=== PATIENT | female | born 1930 | race Hispanic/Latino ===

== ENCOUNTER 2018-01-10 15:53 | Inpatient (IN) | payer OTHER ==
[~2018-01-10] VITALS: Ht 147.3 cm; Wt 69.5 kg
[~2018-01-10 15:53] MED LIST: ASPI-1146 PO; CHOL50004 PO; CLOP75TA32 PO; DOCU-272 PO; IBUP-2353 PO; LORA0.5T2 PO; LOSA100T29 PO; PRAV10TA39 PO
[2018-01-10 16:28] LABS: BASOPHILS % (AUTO) 0.4 % (0.0-5.0); EOSINOPHILS % (AUTO) 0.2 % (0.0-8.0); HEMATOCRIT 35.4 % (36-48); LYMPHOCYTES % (AUTO) 12.6 % (21.0-51.0); MEAN CORPUSCULAR HEMOGLOBIN 31.9 pg (27.0-33.0); MEAN CORPUSCULAR HGB CONC 34.9 g/dL (32.0-36.0); MEAN CORPUSCULAR VOLUME 91.5 fL (79-99); MONOCYTES % (AUTO) 9.3 % (3.0-13.0); NEUTROPHILS % (AUTO) 77.5 % (40.0-77.0); PLATELET COUNT (AUTO) 193 K/uL (130-400); RED BLOOD CELL COUNT(AUTO) 3.87 MIL/uL (4.00-5.50); RED CELL DISTRIBUTION WIDTH 13.3 % (11.0-15.5); WHITE BLOOD COUNT (AUTO) 7.9 K/uL (4.8-10.8)
[2018-01-10] MEDS ORDERED: ACETAMINOPHEN 325 MG TAB ONE (16:29)
[2018-01-10 16:32] LABS: INR 0.98 (0.85-1.15); PARTIAL THROMBOPLASTIN TIME 27.4 SEC (26.3-35.5); PROTHROMBIN TIME 10.3 SEC (9.6-11.6)
[2018-01-10 16:36] LABS: CREATININE 1.2 mg/dL (0.5-1.5); POTASSIUM 4.3 mmol/L (3.5-5.1)
[2018-01-10 16:41] LABS: ALBUMIN 3.5 g/dL (3.5-5.0); BILIRUBIN,TOTAL 0.4 mg/dL (0.2-1.0); TOTAL PROTEIN, SERUM 6.9 g/dL (6.0-8.3)
[2018-01-10 16:58] LABS: APPEARANCE,URINE Clear (CLEAR); BILIRUBIN,URINE Negative (NEGATIVE); COLOR,URINE Yellow (YELLOW); GLUCOSE, URINE (UA) Negative (NEGATIVE); KETONES,URINE Negative (NEGATIVE); LEUKOCYTE ESTERASE ,URINE Negative (NEGATIVE); NITRATE,URINE Negative (NEGATIVE); OCCULT BLOOD,URINE Negative (NEGATIVE); PROTEIN,URINE Trace (NEGATIVE)
[2018-01-10 17:22] LABS: BACTERIA,URINE Rare /HPF (None Seen); RBC,URINE None Seen /HPF (0-1); SQUAMOUS EPITHELIAL CELL,UR None Seen /LPF (0-2); WBC,URINE 0-1 /HPF (0-1)
[2018-01-10 17:22] LABS: RAPID GROUP A STREP NEGATIVE (NEGATIVE)
[2018-01-10] MEDS ORDERED: OSELTAMIVIR PHOSPHATE 75 MG CAP ONE (17:55)
[2018-01-10] MEDS ORDERED: SODIUM CHLORIDE 0.9% 1000ML 1,000 ML IV ONE (21:55)
[2018-01-10] MEDS ORDERED: BENZONATATE 100 MG CAPSULE PO ONE (21:56)
[2018-01-10] MEDS ORDERED: AZITHROMYCIN 250 MG TABLET PO ONE ×2 (21:57→22:31)
[2018-01-10 23:16] VITALS: BP 132/54
[2018-01-11] MEDS ORDERED: ONDANSETRON HCL 4 MG/2 ML VIAL IVP PRN (00:15)
[2018-01-11] MEDS ORDERED: PHARMACY COMMUNICATION MISC SCH ×2 (00:15→02:30)
[2018-01-11] MEDS: SODIUM CHLORIDE 0.9% 1000ML 1,000 ML IV SCH ×3 (00:45→22:07)
[2018-01-11] MEDS ORDERED: GLUCAGON 1MG KIT 1 MG ML IM PRN (00:45)
[2018-01-11] MEDS ORDERED: DEXTROSE 50%-WATER 50 ML DISP.SYRIN IV PRN (00:45)
[2018-01-11 04:00] VITALS: BP 145/62
[2018-01-11 04:26] LABS: HEMATOCRIT 29.4 % (36-48); MEAN CORPUSCULAR HEMOGLOBIN 33.4 pg (27.0-33.0); MEAN CORPUSCULAR HGB CONC 36.5 g/dL (32.0-36.0); MEAN CORPUSCULAR VOLUME 91.6 fL (79-99); PLATELET COUNT (AUTO) 153 K/uL (130-400); RED BLOOD CELL COUNT(AUTO) 3.21 MIL/uL (4.00-5.50); WHITE BLOOD COUNT (AUTO) 4.8 K/uL (4.8-10.8)
[2018-01-11 04:39] LABS: POTASSIUM 3.5 mmol/L (3.5-5.1)
[2018-01-11] MEDS: INSULIN HUMULIN R 100 UNIT/ML 3ML SQ SCH ×4 (06:29→21:00)
[2018-01-11] MEDS: IPRATROPIUM/ALBUTEROL SULFATE 3 ML SOLUTION IH SCH ×4 (06:53→23:52)
[2018-01-11 07:30] VITALS: BP 111/66
[2018-01-11] MEDS: AZITHROMYCIN 250 MG TABLET PO SCH (09:12)
[2018-01-11] MEDS: BENZONATATE 100 MG CAPSULE PO SCH ×3 (09:12→22:05)
[2018-01-11] MEDS: FAMOTIDINE 20MG TAB 20 MG TAB PO SCH ×2 (09:12→22:06)
[2018-01-11 11:00] VITALS: BP 153/67
[2018-01-11 16:00] VITALS: BP 143/60
[2018-01-11] MEDS: LORAZEPAM 0.5 MG TABLET PO PRN (17:08)
[2018-01-11] MEDS: ACETAMINOPHEN 325 MG TAB PO PRN (18:30)
[2018-01-11 19:00] VITALS: BP 129/47
[2018-01-11 23:00] VITALS: BP 123/48
[2018-01-12] MEDS: ACETAMINOPHEN 325 MG TAB PO PRN (01:33)
[2018-01-12 03:00] VITALS: BP 119/59
[2018-01-12 04:15] LABS: HEMATOCRIT 28.8 % (36-48); MEAN CORPUSCULAR HEMOGLOBIN 32.5 pg (27.0-33.0); MEAN CORPUSCULAR HGB CONC 36.1 g/dL (32.0-36.0); MEAN CORPUSCULAR VOLUME 90.1 fL (79-99); PLATELET COUNT (AUTO) 154 K/uL (130-400); RED CELL DISTRIBUTION WIDTH 12.9 % (11.0-15.5); WHITE BLOOD COUNT (AUTO) 3.6 K/uL (4.8-10.8)
[2018-01-12 04:20] LABS: CREATININE 0.9 mg/dL (0.5-1.5); POTASSIUM 3.1 mmol/L (3.5-5.1)
[2018-01-12 04:40] LABS: BAND NEUTROPHILS % (MANUAL) 8 % (0-2); LYMPHOCYTES % (MANUAL) 20 % (22-44); MAN.DIFF COMMENT-IMPRESSION MANUAL DIFFERENTIAL; MONOCYTES % (MANUAL) 6 % (2-9); PLATELET MORPHOLOGY COMMENT ADEQUATE; SEGMENTED NEUTROPHILS % 66 % (40-70)
[2018-01-12] MEDS: INSULIN HUMULIN R 100 UNIT/ML 3ML SQ SCH ×4 (05:59→22:25)
[2018-01-12] MEDS: IPRATROPIUM/ALBUTEROL SULFATE 3 ML SOLUTION IH SCH ×4 (06:38→23:49)
[2018-01-12 08:00] VITALS: BP 99/63
[2018-01-12] MEDS: BENZONATATE 100 MG CAPSULE PO SCH ×3 (08:48→22:10)
[2018-01-12] MEDS: FAMOTIDINE 20MG TAB 20 MG TAB PO SCH ×2 (08:48→22:10)
[2018-01-12] MEDS: AMLODIPINE BESYLATE 2.5 MG TAB PO SCH (08:49)
[2018-01-12] MEDS: METFORMIN HCL 500 MG TAB.SR.24H PO SCH (08:49)
[2018-01-12] MEDS: CLOPIDOGREL BISULFATE 75 MG TAB PO SCH (08:49)
[2018-01-12] MEDS: LOSARTAN 100 MG TABLET PO SCH (08:49)
[2018-01-12] MEDS: ASPIRIN 81 MG EC TAB PO SCH (08:49)
[2018-01-12] MEDS: AZITHROMYCIN 250 MG TABLET PO SCH (08:49)
[2018-01-12] MEDS: LORAZEPAM 0.5 MG TABLET PO PRN ×2 (08:52→22:10)
[2018-01-12] MEDS ORDERED: OSELTAMIVIR PHOSPHATE 75 MG CAP PO SCH (09:00)
[2018-01-12 11:51] VITALS: BP 149/70
[2018-01-12 16:20] VITALS: BP 134/66
[2018-01-12] MEDS ORDERED: MECLIZINE HCL 12.5 MG TABLET PO PRN (17:30)
[2018-01-12] MEDS: SODIUM CHLORIDE 0.9% 1000ML 1,000 ML IV SCH (17:39)
[2018-01-12] MEDS ORDERED: LATA2.5D2 OP (17:47)
[2018-01-12] MEDS ORDERED: CHOL100046 PO (17:47)
[2018-01-12] MEDS ORDERED: PRAV10TA39 PO (17:47)
[2018-01-12 19:28] VITALS: BP 128/61
[2018-01-12 23:35] VITALS: BP 158/72
[2018-01-13] MEDS ORDERED: [UNRECOGNIZED DRUG - OTHER] (00:25)
[2018-01-13] MEDS ORDERED: HALOPERIDOL LACTATE 5 MG/ML VIAL IV ONE (02:15)
[2018-01-13] MEDS ORDERED: HALOPERIDOL LACTATE 5 MG/ML VIAL ONE (02:19)
[2018-01-13] MEDS: SODIUM CHLORIDE 0.9% 1000ML 1,000 ML IV SCH ×2 (02:21→15:15)
[2018-01-13] MEDS ORDERED: [UNRECOGNIZED DRUG - OTHER] OU (03:06)
[2018-01-13 03:24] VITALS: BP 119/87
[2018-01-13] MEDS: IPRATROPIUM/ALBUTEROL SULFATE 3 ML SOLUTION IH SCH ×4 (06:00→23:45)
[2018-01-13 06:27] LABS: HEMATOCRIT 28.8 % (36-48); MEAN CORPUSCULAR HGB CONC 36.7 g/dL (32.0-36.0); MEAN CORPUSCULAR VOLUME 89.9 fL (79-99); PLATELET COUNT (AUTO) 169 K/uL (130-400); RED CELL DISTRIBUTION WIDTH 13.2 % (11.0-15.5); WHITE BLOOD COUNT (AUTO) 4.4 K/uL (4.8-10.8)
[2018-01-13 06:34] LABS: CREATININE 0.7 mg/dL (0.5-1.5); POTASSIUM 3.5 mmol/L (3.5-5.1)
[2018-01-13] MEDS: INSULIN HUMULIN R 100 UNIT/ML 3ML SQ SCH ×4 (07:30→21:00)
[2018-01-13] MEDS: METFORMIN HCL 500 MG TAB.SR.24H PO SCH (08:00)
[2018-01-13 08:45] LABS: BAND NEUTROPHILS % (MANUAL) 1 % (0-2); LYMPHOCYTES % (MANUAL) 20 % (22-44); MAN.DIFF COMMENT-IMPRESSION MANUAL DIFFERENTIAL; MONOCYTES % (MANUAL) 4 % (2-9); PLATELET MORPHOLOGY COMMENT ADEQUATE; SEGMENTED NEUTROPHILS % 75 % (40-70)
[2018-01-13] MEDS: BENZONATATE 100 MG CAPSULE PO SCH ×3 (09:00→22:32)
[2018-01-13] MEDS: FAMOTIDINE 20MG TAB 20 MG TAB PO SCH ×2 (09:00→22:31)
[2018-01-13 11:00] VITALS: BP 180/68
[2018-01-13] MEDS: AMLODIPINE BESYLATE 2.5 MG TAB PO SCH (12:37)
[2018-01-13] MEDS: AZITHROMYCIN 250 MG TABLET PO SCH (12:37)
[2018-01-13] MEDS: CLOPIDOGREL BISULFATE 75 MG TAB PO SCH (12:37)
[2018-01-13] MEDS: ASPIRIN 81 MG EC TAB PO SCH (12:38)
[2018-01-13] MEDS: LOSARTAN 100 MG TABLET PO SCH (12:38)
[2018-01-13] MEDS: ACETAMINOPHEN 325 MG TAB PO PRN (12:43)
[2018-01-13 16:00] VITALS: BP 186/78
[2018-01-13 20:00] VITALS: BP 147/85
[2018-01-13] MEDS ORDERED: RISPERIDONE 1 MG TABLET PO SCH (21:00)
[2018-01-14] VITALS: BP 160/74
[2018-01-14 04:00] VITALS: BP 147/65
[2018-01-14 04:59] LABS: HEMATOCRIT 29.9 % (36-48); MEAN CORPUSCULAR HEMOGLOBIN 31.8 pg (27.0-33.0); MEAN CORPUSCULAR HGB CONC 34.9 g/dL (32.0-36.0); MEAN CORPUSCULAR VOLUME 91.2 fL (79-99); PLATELET COUNT (AUTO) 190 K/uL (130-400); RED BLOOD CELL COUNT(AUTO) 3.28 MIL/uL (4.00-5.50); RED CELL DISTRIBUTION WIDTH 13.1 % (11.0-15.5)
[2018-01-14 05:02] LABS: CREATININE 0.7 mg/dL (0.5-1.5); POTASSIUM 3.4 mmol/L (3.5-5.1)
[2018-01-14 05:32] LABS: EOSINOPHILS % (MANUAL) 10 % (1-6); LYMPHOCYTES % (MANUAL) 40 % (22-44); MONOCYTES % (MANUAL) 4 % (2-9); SEGMENTED NEUTROPHILS % 46 % (40-70)
[2018-01-14 05:34] LABS: MAN.DIFF COMMENT-IMPRESSION MANUAL DIFFERENTIAL; PLATELET MORPHOLOGY COMMENT A1
[2018-01-14] MEDS: INSULIN HUMULIN R 100 UNIT/ML 3ML SQ SCH ×3 (06:14→21:00)
[2018-01-14] MEDS: SODIUM CHLORIDE 0.9% 1000ML 1,000 ML IV SCH ×2 (06:14→20:40)
[2018-01-14] MEDS: IPRATROPIUM/ALBUTEROL SULFATE 3 ML SOLUTION IH SCH ×3 (07:01→18:17)
[2018-01-14 08:14] VITALS: BP 172/66
[2018-01-14] MEDS ORDERED: RISPERIDONE 0.5 MG TABLET PO SCH (09:00)
[2018-01-14] MEDS: LOSARTAN 100 MG TABLET PO SCH (09:08)
[2018-01-14] MEDS: BENZONATATE 100 MG CAPSULE PO SCH ×3 (09:08→21:02)
[2018-01-14] MEDS: METFORMIN HCL 500 MG TAB.SR.24H PO SCH (09:08)
[2018-01-14] MEDS: ASPIRIN 81 MG EC TAB PO SCH (09:08)
[2018-01-14] MEDS: AZITHROMYCIN 250 MG TABLET PO SCH (09:09)
[2018-01-14] MEDS: AMLODIPINE BESYLATE 2.5 MG TAB PO SCH (09:09)
[2018-01-14] MEDS: CLOPIDOGREL BISULFATE 75 MG TAB PO SCH (09:09)
[2018-01-14] MEDS: FAMOTIDINE 20MG TAB 20 MG TAB PO SCH ×2 (09:09→20:39)
[2018-01-14 12:00] VITALS: BP 164/75
[2018-01-14 16:00] VITALS: BP 172/74
[2018-01-14] MEDS ORDERED: HYDRALAZINE HCL 20 MG/ML VIAL IV PRN (19:15)
[2018-01-14 20:00] VITALS: BP 185/76
[2018-01-14] MEDS: RISPERIDONE 1 MG TABLET PO SCH (20:39)
[2018-01-14] MEDS ORDERED: METRONIDAZOLE 500MG/100ML BAG 0 ML ONE (21:24)
[2018-01-15] VITALS (7 sets, daily range): BP systolic 151–177; BP diastolic 66–81
[2018-01-15] MEDS: IPRATROPIUM/ALBUTEROL SULFATE 3 ML SOLUTION IH SCH ×5 (00:24→19:37)
[2018-01-15] MEDS: SODIUM CHLORIDE 0.9% 1000ML 1,000 ML IV SCH ×2 (04:45→17:47)
[2018-01-15 06:29] LABS: HEMATOCRIT 32.8 % (36-48); MEAN CORPUSCULAR HEMOGLOBIN 33.2 pg (27.0-33.0); MEAN CORPUSCULAR HGB CONC 36.4 g/dL (32.0-36.0); MEAN CORPUSCULAR VOLUME 91.1 fL (79-99); NUCLEATED RED BLOOD CELLS 0.1 % (0.0-0.19); PLATELET COUNT (AUTO) 233 K/uL (130-400); RED CELL DISTRIBUTION WIDTH 12.9 % (11.0-15.5); WHITE BLOOD COUNT (AUTO) 4.8 K/uL (4.8-10.8)
[2018-01-15 06:54] LABS: CREATININE 0.8 mg/dL (0.5-1.5); POTASSIUM 3.5 mmol/L (3.5-5.1)
[2018-01-15] MEDS: INSULIN HUMULIN R 100 UNIT/ML 3ML SQ SCH ×4 (07:30→21:00)
[2018-01-15 07:55] LABS: EOSINOPHILS % (MANUAL) 6 % (1-6); LYMPHOCYTES % (MANUAL) 14 % (22-44); MAN.DIFF COMMENT-IMPRESSION MANUAL DIFFERENTIAL; MONOCYTES % (MANUAL) 3 % (2-9); PLATELET MORPHOLOGY COMMENT ADEQUATE; REACTIVE LYMPHOCYTES 1 % (0-0); SEGMENTED NEUTROPHILS % 76 % (40-70)
[2018-01-15] MEDS ORDERED: POTASSIUM CHLORIDE 10% ELIXIR 20 MEQ/15 ML UDCUP PO PRN (08:45)
[2018-01-15] MEDS ORDERED: LIDOCAINE HCL-MPF 1% 2ML VIAL IVP PRN (08:45)
[2018-01-15] MEDS ORDERED: POTASSIUM CHLORIDE 20MEQ/100ML 100 ML IV PRN (08:45)
[2018-01-15] MEDS ORDERED: RISPERIDONE 0.5 MG TABLET PO SCH (09:00)
[2018-01-15] MEDS: AZITHROMYCIN 250 MG TABLET PO SCH (09:19)
[2018-01-15] MEDS: AMLODIPINE BESYLATE 2.5 MG TAB PO SCH (09:19)
[2018-01-15] MEDS: RISPERIDONE 1 MG TABLET PO SCH ×2 (09:19→21:12)
[2018-01-15] MEDS: CLOPIDOGREL BISULFATE 75 MG TAB PO SCH (09:19)
[2018-01-15] MEDS: METFORMIN HCL 500 MG TAB.SR.24H PO SCH (09:20)
[2018-01-15] MEDS: LOSARTAN 100 MG TABLET PO SCH (09:20)
[2018-01-15] MEDS: BENZONATATE 100 MG CAPSULE PO SCH ×3 (09:20→21:13)
[2018-01-15] MEDS: ASPIRIN 81 MG EC TAB PO SCH (09:20)
[2018-01-15] MEDS: FAMOTIDINE 20MG TAB 20 MG TAB PO SCH ×2 (09:20→21:13)
[2018-01-15] MEDS: POTASSIUM CHLORIDE 20 MEQ ERTAB PO PRN ×2 (11:59→13:54)
[2018-01-16] MEDS: IPRATROPIUM/ALBUTEROL SULFATE 3 ML SOLUTION IH SCH ×5 (00:07→23:16)
[2018-01-16] MEDS: SODIUM CHLORIDE 0.9% 1000ML 1,000 ML IV SCH ×2 (02:36→18:15)
[2018-01-16 04:00] VITALS: BP 134/56
[2018-01-16] MEDS: INSULIN HUMULIN R 100 UNIT/ML 3ML SQ SCH ×4 (06:21→20:53)
[2018-01-16 06:32] LABS: HEMATOCRIT 31.8 % (36-48); MEAN CORPUSCULAR HEMOGLOBIN 32.1 pg (27.0-33.0); MEAN CORPUSCULAR VOLUME 91.6 fL (79-99); PLATELET COUNT (AUTO) 269 K/uL (130-400); RED BLOOD CELL COUNT(AUTO) 3.47 MIL/uL (4.00-5.50); RED CELL DISTRIBUTION WIDTH 13.1 % (11.0-15.5); WHITE BLOOD COUNT (AUTO) 5.9 K/uL (4.8-10.8)
[2018-01-16 06:41] LABS: CREATININE 0.7 mg/dL (0.5-1.5); POTASSIUM 3.9 mmol/L (3.5-5.1)
[2018-01-16 08:11] VITALS: BP 159/76
[2018-01-16 08:57] LABS: EOSINOPHILS % (MANUAL) 1 % (1-6); LYMPHOCYTES % (MANUAL) 20 % (22-44); MAN.DIFF COMMENT-IMPRESSION MANUAL DIFFERENTIAL; MONOCYTES % (MANUAL) 10 % (2-9); PLATELET MORPHOLOGY COMMENT ADEQUATE; SEGMENTED NEUTROPHILS % 69 % (40-70)
[2018-01-16] MEDS: METFORMIN HCL 500 MG TAB.SR.24H PO SCH (08:59)
[2018-01-16] MEDS: AMLODIPINE BESYLATE 2.5 MG TAB PO SCH (08:59)
[2018-01-16] MEDS: ASPIRIN 81 MG EC TAB PO SCH (08:59)
[2018-01-16] MEDS: BENZONATATE 100 MG CAPSULE PO SCH ×3 (08:59→20:52)
[2018-01-16] MEDS: LOSARTAN 100 MG TABLET PO SCH (08:59)
[2018-01-16] MEDS: CLOPIDOGREL BISULFATE 75 MG TAB PO SCH (08:59)
[2018-01-16] MEDS: AZITHROMYCIN 250 MG TABLET PO SCH (09:00)
[2018-01-16] MEDS: FAMOTIDINE 20MG TAB 20 MG TAB PO SCH ×2 (09:00→20:53)
[2018-01-16] MEDS: RISPERIDONE 1 MG TABLET PO SCH ×2 (09:00→20:53)
[2018-01-16 12:05] VITALS: BP 137/65
[2018-01-16 17:18] VITALS: BP 146/61
[2018-01-16 20:00] VITALS: BP 149/69
[2018-01-16] MEDS: GABAPENTIN 100 MG CAPSULE PO SCH (20:52)
[2018-01-17] VITALS: BP 139/75
[2018-01-17 04:00] VITALS: BP 162/64
[2018-01-17 04:31] LABS: HEMATOCRIT 29.3 % (36-48); MEAN CORPUSCULAR HEMOGLOBIN 32.8 pg (27.0-33.0); MEAN CORPUSCULAR HGB CONC 35.9 g/dL (32.0-36.0); MEAN CORPUSCULAR VOLUME 91.4 fL (79-99); PLATELET COUNT (AUTO) 286 K/uL (130-400); RED BLOOD CELL COUNT(AUTO) 3.21 MIL/uL (4.00-5.50); RED CELL DISTRIBUTION WIDTH 13.2 % (11.0-15.5); WHITE BLOOD COUNT (AUTO) 7.2 K/uL (4.8-10.8)
[2018-01-17 04:35] LABS: CREATININE 0.8 mg/dL (0.5-1.5); POTASSIUM 3.5 mmol/L (3.5-5.1)
[2018-01-17 04:50] LABS: EOSINOPHILS % (MANUAL) 1 % (1-6); LYMPHOCYTES % (MANUAL) 24 % (22-44); MAN.DIFF COMMENT-IMPRESSION MANUAL DIFFERENTIAL; MONOCYTES % (MANUAL) 6 % (2-9); SEGMENTED NEUTROPHILS % 69 % (40-70)
[2018-01-17] MEDS: INSULIN HUMULIN R 100 UNIT/ML 3ML SQ SCH ×4 (06:02→20:54)
[2018-01-17] MEDS: IPRATROPIUM/ALBUTEROL SULFATE 3 ML SOLUTION IH SCH ×4 (06:13→23:25)
[2018-01-17 07:48] VITALS: BP 165/81
[2018-01-17] MEDS: LOSARTAN 100 MG TABLET PO SCH (08:51)
[2018-01-17] MEDS: METFORMIN HCL 500 MG TAB.SR.24H PO SCH (08:51)
[2018-01-17] MEDS: FAMOTIDINE 20MG TAB 20 MG TAB PO SCH ×2 (08:51→20:51)
[2018-01-17] MEDS: CLOPIDOGREL BISULFATE 75 MG TAB PO SCH (08:51)
[2018-01-17] MEDS: AMLODIPINE BESYLATE 2.5 MG TAB PO SCH (08:51)
[2018-01-17] MEDS: RISPERIDONE 1 MG TABLET PO SCH ×3 (08:51→20:41)
[2018-01-17] MEDS: ASPIRIN 81 MG EC TAB PO SCH (08:51)
[2018-01-17] MEDS: AZITHROMYCIN 250 MG TABLET PO SCH (08:51)
[2018-01-17] MEDS: BENZONATATE 100 MG CAPSULE PO SCH ×3 (08:53→20:51)
[2018-01-17] MEDS: SODIUM CHLORIDE 0.9% 1000ML 1,000 ML IV SCH (08:53)
[2018-01-17 13:06] VITALS: BP 152/74
[2018-01-17 17:01] VITALS: BP 155/61
[2018-01-17 20:00] VITALS: BP 152/65
[2018-01-17] MEDS: GABAPENTIN 100 MG CAPSULE PO SCH (20:41)
[2018-01-17] MEDS: POTASSIUM CHLORIDE 20 MEQ ERTAB PO PRN (20:51)
[2018-01-18] VITALS: BP 122/49
[2018-01-18 03:59] VITALS: BP 130/49
[2018-01-18] MEDS: IPRATROPIUM/ALBUTEROL SULFATE 3 ML SOLUTION IH SCH ×3 (06:10→18:00)
[2018-01-18] MEDS: INSULIN HUMULIN R 100 UNIT/ML 3ML SQ SCH ×4 (06:49→21:00)
[2018-01-18 07:00] VITALS: BP 130/56
[2018-01-18] MEDS: CLOPIDOGREL BISULFATE 75 MG TAB PO SCH (08:33)
[2018-01-18] MEDS: LOSARTAN 100 MG TABLET PO SCH (08:33)
[2018-01-18] MEDS: FAMOTIDINE 20MG TAB 20 MG TAB PO SCH ×2 (08:34→21:27)
[2018-01-18] MEDS: METFORMIN HCL 500 MG TAB.SR.24H PO SCH (08:34)
[2018-01-18] MEDS: BENZONATATE 100 MG CAPSULE PO SCH ×3 (08:34→21:27)
[2018-01-18] MEDS: AMLODIPINE BESYLATE 5 MG TAB PO SCH (08:34)
[2018-01-18] MEDS: ASPIRIN 81 MG EC TAB PO SCH (08:34)
[2018-01-18 11:00] VITALS: BP 135/63
[2018-01-18] MEDS: LACTULOSE 20 GM/30 ML UDCUP PO PRN ×2 (11:41→16:22)
[2018-01-18 16:00] VITALS: BP 142/60
[2018-01-18] MEDS: OLANZAPINE 5 MG TAB PO SCH (16:45)
[2018-01-18] MEDS: ACETAMINOPHEN 325 MG TAB PO PRN (16:49)
[2018-01-18 20:00] VITALS: BP 140/61
[2018-01-18] MEDS: LORAZEPAM 0.5 MG TABLET PO PRN (21:36)
[2018-01-19] VITALS: BP 140/70
[2018-01-19] MEDS: IPRATROPIUM/ALBUTEROL SULFATE 3 ML SOLUTION IH SCH ×4 (00:03→19:23)
[2018-01-19 04:00] VITALS: BP 136/60
[2018-01-19] MEDS: INSULIN HUMULIN R 100 UNIT/ML 3ML SQ SCH ×3 (06:14→16:30)
[2018-01-19 07:00] VITALS: BP 143/70
[2018-01-19] MEDS: OLANZAPINE 5 MG TAB PO SCH (07:55)
[2018-01-19] MEDS: ACETAMINOPHEN 325 MG TAB PO PRN (08:01)
[2018-01-19] MEDS: LORAZEPAM 0.5 MG TABLET PO PRN (08:01)
[2018-01-19] MEDS: ASPIRIN 81 MG EC TAB PO SCH (08:01)
[2018-01-19] MEDS: METFORMIN HCL 500 MG TAB.SR.24H PO SCH (08:01)
[2018-01-19] MEDS: LOSARTAN 100 MG TABLET PO SCH (08:01)
[2018-01-19] MEDS: CLOPIDOGREL BISULFATE 75 MG TAB PO SCH (08:01)
[2018-01-19] MEDS: FAMOTIDINE 20MG TAB 20 MG TAB PO SCH (08:01)
[2018-01-19] MEDS: AMLODIPINE BESYLATE 5 MG TAB PO SCH (08:01)
[2018-01-19] MEDS: BENZONATATE 100 MG CAPSULE PO SCH ×2 (08:02→13:30)
[2018-01-19 11:00] VITALS: BP 136/65
[2018-01-19 16:00] VITALS: BP 124/86
[2018-01-23] MEDS ORDERED: GABAPENTIN 100 MG CAPSULE PO SCH (21:00)
== END 2018-01-19 20:10 | DRG 195 ==
LOC: EDH 15:53 → EDHIP 20:18 → 3CH 23:07
PROVIDERS: ADMIT Family Medicine; ATTEND Family Medicine
DX: J10.1 Influenza due to other identified influenza virus with other respiratory manifestations (principal); E11.42 Type 2 diabetes mellitus with diabetic polyneuropathy; E86.0 Dehydration; S00.03XA Contusion of scalp, initial encounter; W18.30XA Fall on same level, unspecified, initial encounter; F29 Unspecified psychosis not due to a substance or known physiological condition; I25.10 Atherosclerotic heart disease of native coronary artery without angina pectoris; J20.9 Acute bronchitis, unspecified; M48.00 Spinal stenosis, site unspecified; E78.5 Hyperlipidemia, unspecified; I10 Essential (primary) hypertension; Y92.010 Kitchen of single-family (private) house as the place of occurrence of the external cause; Z86.73 Personal history of transient ischemic attack (TIA), and cerebral infarction without residual deficits; Z79.84 Long term (current) use of oral hypoglycemic drugs; Z90.710 Acquired absence of both cervix and uterus; Z95.5 Presence of coronary angioplasty implant and graft; Z85.42 Personal history of malignant neoplasm of other parts of uterus; Z88.1 Allergy status to other antibiotic agents; Z79.899 Other long term (current) drug therapy; Y93.89 Activity, other specified; Y99.8 Other external cause status
CPT/HCPCS: 36415; 70450; 71045; 72125; 80048; 80053; 81001; 82948; 83605; 84132; 84484; 85025; 85027; 85610; 85730; 87040; 87804; 87880; 92610; 93005; 94640; 94664; 97039; J1630; J1815; J3490; J7030